=== PATIENT | female | born 1995 | race Caucasian/White ===

== ENCOUNTER 2017-10-08 00:10 | Emergency (ER) | payer OTHER ==
[~2017-10-08] VITALS: Ht 162.6 cm; Wt 63.5 kg
[2017-10-08] MEDS ORDERED: ZOFRAN ODT4 MG PO (03:47)
== END 2017-10-08 04:02 | disposition home or self-care (01) ==
LOC: ER 00:10
DX: R10.13 Epigastric pain (principal)

== ENCOUNTER 2019-02-11 21:06 | Inpatient (IN) | payer OTHER ==
[~2019-02-11] VITALS: Ht 160 cm; Wt 44.5 kg
[~2019-02-11 21:06] MED LIST: ZOFRAN ODT4 MG PO
[2019-02-16] MEDS ORDERED: TYLENOL EXTRA500 MG PO (13:18)
[2019-02-16] MEDS ORDERED: MIRALAX17 GM PO (13:18)
[2019-02-16] MEDS ORDERED: TRAMADOL HCL50 MG PO (13:18)
== END 2019-02-16 17:07 | disposition home or self-care (01) | DRG 418 ==
LOC: ER 21:06 → SURG 02-12 16:55
PROVIDERS: Surgery; ADMIT Internal Medicine
PROC: BW40ZZZ Ultrasonography of Abdomen (ICD-10-PCS; 2019-02-12)
PROC: 02HV33Z Insertion of Infusion Device into Superior Vena Cava, Percutaneous Approach (ICD-10-PCS; 2019-02-14)
PROC: 3E0336Z Introduction of Nutritional Substance into Peripheral Vein, Percutaneous Approach (ICD-10-PCS; 2019-02-14)
PROC: BF00YZZ Plain Radiography of Bile Ducts using Other Contrast (ICD-10-PCS; 2019-02-15)
PROC: 0FT44ZZ Resection of Gallbladder, Percutaneous Endoscopic Approach (ICD-10-PCS; principal; 2019-02-15 07:00)
DX: K80.00 Calculus of gallbladder with acute cholecystitis without obstruction (principal); E44.0 Moderate protein-calorie malnutrition; K29.00 Acute gastritis without bleeding